=== PATIENT | male | born 1970 ===

== ENCOUNTER 2023-07-21 09:30 | Day surgery (SDC) | payer OTHER ==
[~2023-07-21] VITALS: Ht 167.6 cm; Wt 79.1 kg
[~2023-07-21 09:30] MED LIST: LR 1,000 ML IV SCH; Ondansetron 4 MG/2 ML VIAL IV PRN
[2023-07-21] MEDS ORDERED: fentaNYL 50 MCG/ML 2 ML VIAL ONE (10:28)
[2023-07-21] MEDS ORDERED: Lidocaine PF 2% (20 MG/ML) 5 ML VIAL ONE (10:28)
[2023-07-21 10:53] VITALS: BP 118/83; PULSE 66; TEMP 97.4
[2023-07-21] MEDS ORDERED: PRILOSEC 20MG20 MG PO (11:20)
[2023-07-21] MEDS ORDERED: UROXATRAL10 M1 PO (11:21)
[2023-07-21 11:30] VITALS: BP 100/72; PULSE 65; TEMP 96.7
[2023-07-21 11:35] VITALS: BP 106/76; PULSE 61
[2023-07-21 11:45] VITALS: BP 106/81; PULSE 63
--- NOTE | 2023-07-21 12:03 | NUR ---
1130- PATIENT RETURNS TO [facility] VIA CART. PT AWAKE AND ALERT. RESPIRATIONS UNLABORED. AMBULATED TO RECLINER CHAIR WITH 2:1 SBA. PT DENIES NAUSEA OR ABDOMINAL PAIN. HOOKED UP TO MONITOR AND VS OBTAINED. CALL LIGHT AT SIDE AND PRESENT. DR. ROLLE IN ROOM SPEAKING WITH PATIENT. 1142- PATIENT TOLERATING COFFEE AND MUFFIN WITHOUT NAUSEA OR DIFFICULTY SWALLOWING. 1153- D/C INSTRUCTIONS REVIEWED WITH PATIENT. PT VERBALIZED UNDERSTANDING AND A COPY OF INSTRUCTIONS PROVIDED IN D/C FOLDER. 1158- PATIENT DRESSES SELF. 1203- PATIENT DISCHARGED FROM UNIT VIA W/C TO A PERSONAL VEHICLE. PT LEFT HOSPITAL IN STABLE CONDITION.
== END 2023-07-21 12:03 | disposition home or self-care (01) ==
LOC: SDCO 09:30
DX: Z12.11 Encounter for screening for malignant neoplasm of colon (principal); D12.8 Benign neoplasm of rectum; D12.4 Benign neoplasm of descending colon; K64.0 First degree hemorrhoids; K21.9 Gastro-esophageal reflux disease without esophagitis; K29.40 Chronic atrophic gastritis without bleeding; K29.30 Chronic superficial gastritis without bleeding
CPT/HCPCS: J2704; J3010